=== PATIENT | male | born 1935 | race Caucasian/White ===

== ENCOUNTER 2016-11-03 11:50 | Emergency (ER) | payer OTHER, MEDICARE ==
[~2016-11-03] VITALS: Ht 177.8 cm; Wt 81.7 kg
[~2016-11-03 11:50] MED LIST: ACETAMINOPHEN650 M5 PO; ALBUTEROL SULFAT4 MG PO; AMBIEN 5 MG TABL5 M1 PO; ASPIRIN EC325 M1 PO; ATROVENT IH; BROVANA15 MCG/2 M; BROVANA15 MCG/2 M IH; DUONEB 2.5-0.5 M3 ML IH; GLUCOPHAGE XR500 MG PO; HYDROCODON-ACE1 EACH PO; LIPITOR PO; LIPITOR40 MG PO; LISINOPRIL PO; PREDNISONE 10 M10 MG PO; PREDNISONE 20 M20 MG; PREDNISONE PO; PROAIR HFA8.5 GM IH; PULMICORT0.5 MG/2 M IH; SPIRIVA; THEOPHYLLINE E100 M1; THEOPHYLLINE S300 M1 PO; VENTOLIN17 GM IH; VIBRAMYCIN 100100 MG PO; XOPENEX 0.63 MG/3 M1 IH
[2016-11-03] MEDS ORDERED: VALIUM5 MG PO (15:28)
== END 2016-11-03 15:53 | disposition home or self-care (01) ==
LOC: ER 11:50
DX: S16.1XXA Strain of muscle, fascia and tendon at neck level, initial encounter (principal); J44.9 Chronic obstructive pulmonary disease, unspecified; E78.00 Pure hypercholesterolemia, unspecified; E11.9 Type 2 diabetes mellitus without complications; I10 Essential (primary) hypertension; Z85.828 Personal history of other malignant neoplasm of skin; Z88.5 Allergy status to narcotic agent; X58.XXXA Exposure to other specified factors, initial encounter; Y93.89 Activity, other specified; Y92.89 Other specified places as the place of occurrence of the external cause; Y99.8 Other external cause status

== ENCOUNTER 2017-08-19 13:10 | Inpatient (IN) | payer OTHER, MEDICARE ==
[~2017-08-19] VITALS: Ht 152.4 cm; Wt 86.6 kg
--- NOTE | ~2017-08-19 | 2DMMODE ---
[facility] [address] [place] [address] 2 D/M-MODE ECHOCARDIOGRAM Name: BHAVANA JEFFRIES Room #: 354-P [facility] IN .R.#: [id number] Admission: 08/19/17 Attend Phys: Andrea Jerez, Discharge: Date of : 37 Date of Service: 08/21/17 1505 Report #: [id number] THIS REPORT FOR: //name// APPROVED REPORT Study performed: 08/21/2017 10:10:45 EXAM: Comprehensive 2D, Doppler, and color-flow Echocardiogram Patient Location: Bedside Room #: [facility] Status: routine BSA: 2.05 HR: 115 bpm BP: 136/63 mmHg Rhythm: Tachycardia, Irregular Other Information Study Quality: Fair/Poor. Patient sitting up in bed. Technically limited study due to severe SOB and cough. Did not tolerate exam well. Not all measurements taken.. Indications Respiratory failure, leg swelling. Hx: COPD, CAD, stents, HTN, HLP, DM 2D Dimensions LVEF(%): 44.80 (>50%) IVSd: 12.42 (7-11mm) LVOT Diam: 24.07 (18-24mm) LVDd: 57.34 mm PWd: 12.51 (7-11mm) LVDs: 44.40 (25-40mm) Aortic Root: 40.46 mm Whitehead's LVEF: 44.80 % Aortic Valve AoV Peak Juan Manuel.: 1.10 m/s AO Peak Gr.: 4.88 mmHg LVOT Max P.48 mmHg LVOT Max V: 0.93 m/s ELAINE Vmax: 3.84 cm2 Mitral Valve E/A Ratio: 0.6 MV Decel. Time: 261.40 ms MV E Max Juan Manuel.: 0.87 m/s [facility] [place] [address] 2 D/M-MODE ECHOCARDIOGRAM Name: BHAVANA JEFFRIES Room #: 354-P ADM IN M.R.#: [id number] Admission: 08/19/17 Attend Phys: Andrea Jerez, Discharge: Date of : 37 Date of Service: 08/21/17 1505 Report #: [id number] A Juan Manuel.: 1.43 m/s MV PHT: 75.81 ms Pulmonary Valve PV Peak Juan Manuel.: 1.22 m/s PV Peak Gr.: 5.97 mmHg Tricuspid Valve TR Peak Juan Manuel.: 2.58 m/s RAP Estimate: 10.00 mmHg TR Peak Gr.: 26.53 mmHg PA Pressure: 37.00 mmHg Left Ventricle The left ventricle is normal size. Mild concentric left ventricular hypertrophy. Left ventricular systolic function is normal. LVEF is 50-55%. Right Ventricle The right ventricle is normal size. The right ventricular systolic function is normal. Atria The left atrium size is normal. The right atrium size is normal. Aortic Valve Aortic valve is mildy calcified. No aortic regurgitation is present. There is no aortic valvular stenosis. Mitral Valve The mitral valve is normal in structure. Moderate mitral annular calcification. Trace mitral regurgitation. Tricuspid Valve The tricuspid valve is normal in structure. Trace tricuspid regurgitation. Estimated PAP is 35-40mmHg. Pulmonic Valve Pulmonic valve is not well visualized. Trace pulmonic regurgitation. 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 Ascending aorta is not well visualized. IVC is dilated and collapses <50% with inspiration. Per[facility]ardium [facility] [address] [place] [address] 2 D/M-MODE ECHOCARDIOGRAM Name: BHAVANA JEFFRIES Room #: 354-P ADM IN M.R.#: [id number] Admission: 08/19/17 Attend Phys: Andrea Jerez, Discharge: Date of : 37 Date of Service: 08/21/17 1505 Report #: [id number] There is no pericardial effusion. <Conclusion> Technically difficult study. The left ventricle is normal size. Mild concentric left ventricular hypertrophy. Left ventricular systolic function is normal. The right ventricle is normal size. The left atrium size is normal. Aortic valve is mildy calcified. There is no aortic valvular stenosis. Moderate mitral annular calcification. Trace mitral regurgitation. Trace tricuspid regurgitation. Estimated PAP is 35-40mmHg. <ELECTRONICALLY SIGNED> By: Conor Wilcox MD 08/21/17 1505 1505 1505 Conor Wilcox MD /INF
--- NOTE | ~2017-08-19 | HC ---
[facility] [place] [address] CONSULTATION Name: BHAVANA JEFFRIES Room #: 354-P [facility] IN M.R.#: [id number] Admission: 08/19/17 Attend Phys: Andrea Jerez MD Discharge: 08/24/17 Date of : 37 Report #: [id number] THIS REPORT FOR: //name// CC: Cody Carbajal MD DATE OF SERVICE: 08/19/2017 PULMONARY CONSULTATION REFERRING PROVIDER: Andrea Jerez MD REASON FOR CONSULTATION: Shortness of breath, exacerbation of COPD. HISTORY OF PRESENT ILLNESS: Our group was asked to see the patient in consultation while hospitalized at [facility]. The patient of Dr. Carbajal from our group with a longstanding history of COPD, most recent FEV1 was 0.77 liters or 29% of predicted, also with some interstitial lung disease, called our office 2 days ago with complaints of increasing shortness of breath and cough, was advised to come to the Emergency Department due to the severity of his illness. The patient declined self escalated steroids and uses nebulized treatments more frequently without improvement. He presented to the Emergency Department today due to above complaints. Cough has been productive, unable to expectorate. Denies any fevers, chills or sweats, just some general malaise. States he is feeling better since admission after some aerosol treatments, steroids and antibiotics IV. Currently, he is on 8 liters nasal cannula baseline is requiring 7 liters nasal cannula. ALLERGIES: Include OXYCODONE. PAST MEDICAL HISTORY: 1. COPD as described in HPI. 2. Chronic hypoxemic respiratory failure. 3. Coronary artery disease. 4. Diabetes mellitus type 2. 5. Hyperlipidemia. 6. Hypertension. OUTPATIENT MEDICATIONS: 1. Albuterol inhaler p.r.n. 2. Albuterol nebulized treatments p.r.n. 3. Brovana nebulized twice daily. 4. Aspirin [address] [address] CONSULTATION Name: BHAVANA JEFFRIES Geoffrey Room #: 354-P [facility] IN M.R.#: [id number] Admission: 08/19/17 Attend Phys: Andrea Jerez MD Discharge: 08/24/17 Date of : 37 Report #: [id number] 5. Lipitor 40 mg daily. 6. Budesonide 0.5 mg nebulized twice daily. 7. Hydrocodone p.r.n. 8. Lisinopril 20 mg daily. 9. Melatonin at bedtime p.r.n. 10. Metformin 500 mg twice daily. 11. Supplemental oxygen. 12. Pred Forte eye drops. 13. Prednisone 5 mg tablets daily. 14. Theophylline 300 mg twice daily. 15. Spiriva inhaler. SOCIAL HISTORY: The patient is an ex-smoker, with about a [id number] history of tobacco use. No significant alcohol consumption. FAMILY HISTORY: Noncontributory due to his advanced age. REVIEW OF SYSTEMS: CONSTITUTIONAL: Denies any fever, just some general malaise. ENT: No upper respiratory congestion, rhinorrhea or dysphagia. CARDIOVASCULAR: No chest pains or palpitations. GASTROINTESTINAL: No nausea, vomiting or abdominal pain. GENITOURINARY: No dysuria, no frequency. INTEGUMENT: Denies any rash. MUSCULOSKELETAL: Some increased lower extremity edema, which he states is new. PHYSICAL EXAMINATION: VITAL SIGNS: Afebrile, pulse 100-110, respiratory rate 20, blood pressure 129/83, oxygen saturation 93% on 8 liters. GENERAL: This is a pleasant elderly male, in no distress. HEENT: Clear oropharynx. No thrush. NECK: Supple, no lymphadenopathy. LUNGS: Basilar inspiratory crackles. Occasional expiratory rhonchi and wheezes. CARDIOVASCULAR: Heart regular. No murmurs noted. ABDOMEN: Soft, nontender, no masses. EXTREMITIES: 1+ edema. LABORATORY DATA: White blood cell count 7000, hemoglobin 12, hematocrit 35, platelet count 177. Sodium 145, potassium 4.5, chloride 104, bicarbonate 29, BUN 20, creatinine 1.0, glucose 72. 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 No acute process identified. IMPRESSION: [facility] [address] [place] [address] CONSULTATION Name: BHAVANA JEFFRIES Room #: 354-P [facility] IN M.R.#: [id number] Admission: 08/19/17 Attend Phys: Andrea Jerez MD Discharge: 08/24/17 Date of : 37 Report #: [id number] 1. Acute exacerbation of chronic obstructive pulmonary disease. 2. Acute on chronic hypoxemic respiratory failure. 3. Elevated troponin. SUGGESTIONS: 1. Systemic steroid with taper. 2. Bronchodilation. 3. Add flutter valve to assist with airway clearance. 4. Titrate FiO2. 5. Await sputum cultures. 6. Nasal swab for respiratory viral panel, influenza screen was negative. 7. Mobilize as tolerated. 8. Lower extremity venous Dopplers regarding lower extremity edema. 9. Additional recommendations to follow. Discussed with the patient and nursing. <ELECTRONICALLY SIGNED> By: Ethan Fontana MD 08/24/17 1726 1727 [id number] Ethan Fontana MD /nt
--- NOTE | ~2017-08-19 | EKG ---
[place] [address] [facility] [employer] [address] ELECTROCARDIOGRAM REPORT Name: BHAVANA JEFFRIES Room #: 170-8 ADM IN M.R.#: [id number] Admission: 08/19/17 Attend Phys: Andrea Jerez MD Discharge: Date of : 37 Report #: [id number] THIS REPORT FOR: //name// [facility] ED Test Date: 2017-08-19 Test Time: 14:33:36 Pat Name: BHAVANA JEFFRIES Department: Room: 170 Gender: M Forklift Technician: GRACIELA : 1935 Requested By: Gadiel Lorenzo Order Number: [id number] MD: Chaz Kingsley Measurements Intervals [place] Rate: 112 P: MI: QRS: -51 QRSD: 108 T: 61 QT: 341 QTc: 466 Interpretive Statements Atrial fibrillation Incomplete RBBB and LAFB RSR' in V1 or V2, right VCD or RVH Compared to ECG 07/06/2011 08:57:16 Left anterior fascicular block now present Incomplete right bundle-branch block now present Right bundle-branch block now present Right ventricular hypertrophy now present RSR' in V1 or V2 now present Sinus rhythm no longer present Poor R-wave progression no longer present Electronically Signed On 08-19-2017 16:06:54 CONTROL INTEGRATION ENGINEER by Chaz Kingsley [email or web address] <ELECTRONICALLY SIGNED> By: Chaz Kingsley MD 08/19/17 1606 143 [id number] Chaz Kingsley MD /EPI
[~2017-08-19 13:10] MED LIST changes: +VALIUM5 MG PO
[2017-08-19 13:12] VITALS: BP 164/116
[2017-08-19 14:27] LABS: HEMATOCRIT 36.5 % (42.0-52.0); MCH 29.8 pg (26.0-34.0); MCHC 32.8 g/dL (28.0-37.0); MCV 90.9 fL (80.0-100.0); PLATELET COUNT 181 thou/uL (150-400); RBC 4.02 mil/uL (4.50-6.00); RDW 14.2 % (10.5-14.5); WBC 8.6 thou/uL (4.0-11.0)
[2017-08-19 14:36] LABS: BE(vivo) 7.2 mmol/L (-2 to +3); HCO3 33.3 mmol/L (22.0-26.0); PCO2 53.3 mmHg (35.0-45.0); PO2 74.1 mmHg (80.0-100.0); pH 7.413 (7.360-7.450); sO2 94.8 % (92.0-98.0)
[2017-08-19 14:46] LABS: POTASSIUM 4.4 mmol/L (3.5-5.1)
[2017-08-19 14:52] LABS: CALCIUM 9.3 mg/dL (8.5-10.1); CREATININE 0.9 mg/dL (0.7-1.3)
[2017-08-19 15:03] LABS: ABSOLUTE NEUTROPHILS 7.8 thou/uL (1.4-8.2)
[2017-08-19 15:07] LABS: ALBUMIN 3.1 g/dL (3.4-5.0); TOTAL BILIRUBIN 0.6 mg/dL (<0.1-1.0); TOTAL PROTEIN 6.6 g/dL (6.4-8.2)
[2017-08-19 15:08] LABS: TROPONIN-I 0.06 ng/mL (<0.06)
[2017-08-19 16:45] VITALS: BP 153/70
[2017-08-19 17:45] VITALS: BP 148/88
[2017-08-19 18:37] VITALS: BP 144/64
[2017-08-19 20:00] VITALS: BP 147/59
[2017-08-20 02:27] LABS: HEMOGLOBIN 11.6 gm/dL (14.0-18.0); MCH 30.3 pg (26.0-34.0); MCV 91.6 fL (80.0-100.0); RBC 3.82 mil/uL (4.50-6.00); RDW 14.2 % (10.5-14.5); WBC 6.5 thou/uL (4.0-11.0)
[2017-08-20 03:23] LABS: CALCIUM 9.3 mg/dL (8.5-10.1); MAGNESIUM 2.2 mg/dL (1.8-2.4); POTASSIUM 4.5 mmol/L (3.5-5.1); TROPONIN-I 0.07 ng/mL (<0.06)
[2017-08-20 04:00] VITALS: BP 133/61
[2017-08-20 08:34] VITALS: BP 139/75
[2017-08-20 12:57] VITALS: BP 131/53
[2017-08-20 16:17] VITALS: BP 129/83
[2017-08-20 19:11] VITALS: BP 151/71
[2017-08-21 03:52] VITALS: BP 129/75
[2017-08-21 06:50] LABS: MCH 30.5 pg (26.0-34.0); MCHC 33.2 g/dL (28.0-37.0); MCV 91.6 fL (80.0-100.0); PLATELET COUNT 182 thou/uL (150-400); RDW 14.7 % (10.5-14.5); WBC 9.7 thou/uL (4.0-11.0)
[2017-08-21 07:11] LABS: ALBUMIN 2.5 g/dL (3.4-5.0); CALCIUM 8.6 mg/dL (8.5-10.1); POTASSIUM 4.1 mmol/L (3.5-5.1); TOTAL BILIRUBIN 0.2 mg/dL (<0.1-1.0); TOTAL PROTEIN 5.8 g/dL (6.4-8.2)
[2017-08-21 07:34] VITALS: BP 136/63
[2017-08-21 10:55] LABS: ABSOLUTE NEUTROPHILS 8.9 thou/uL (1.4-8.2)
[2017-08-21 11:51] VITALS: BP 125/55
[2017-08-21 17:10] VITALS: BP 135/96
[2017-08-21 19:13] VITALS: BP 150/68
[2017-08-22 03:54] VITALS: BP 140/81
[2017-08-22 04:36] LABS: HEMOGLOBIN 11.5 gm/dL (14.0-18.0); MCH 29.5 pg (26.0-34.0); MCHC 31.9 g/dL (28.0-37.0); MCV 92.4 fL (80.0-100.0); PLATELET COUNT 215 thou/uL (150-400); RDW 14.8 % (10.5-14.5); WBC 10.1 thou/uL (4.0-11.0)
[2017-08-22 04:51] LABS: ALBUMIN 2.8 g/dL (3.4-5.0); CREATININE 1.2 mg/dL (0.7-1.3); POTASSIUM 4.5 mmol/L (3.5-5.1); TOTAL BILIRUBIN 0.3 mg/dL (<0.1-1.0); TOTAL PROTEIN 6.2 g/dL (6.4-8.2)
[2017-08-22 06:34] LABS: ABSOLUTE NEUTROPHILS 10.1 thou/uL (1.4-8.2); ANISOCYTOSIS SLIGHT
[2017-08-22 07:40] VITALS: BP 172/80
[2017-08-22 11:50] VITALS: BP 150/78
[2017-08-22 16:40] VITALS: BP 146/77
[2017-08-22 19:25] VITALS: BP 121/63
[2017-08-23 03:31] VITALS: BP 123/60
[2017-08-23 08:33] VITALS: BP 153/68
[2017-08-23 13:26] VITALS: BP 145/72
[2017-08-23 17:20] VITALS: BP 145/72
[2017-08-23 19:27] VITALS: BP 150/81
[2017-08-24 04:17] VITALS: BP 137/70
[2017-08-24 08:16] VITALS: BP 150/85
[2017-08-24 08:21] VITALS: BP 150/85
[2017-08-24] MEDS ORDERED: LEVAQUIN 500 M500 M2 PO (09:06)
[2017-08-24] MEDS ORDERED: MUCINEX600 MG PO (09:08)
[2017-08-24] MEDS ORDERED: FLOMAX0.4 MG PO (09:14)
== END 2017-08-24 14:17 | DRG 871 ==
LOC: ER 13:10 → EROBS 15:34 → 3W 15:34
PROVIDERS: Internal Medicine; Nurse Practitioner Family; Physician Assistant
DX: A41.9 Sepsis, unspecified organism (principal); J96.21 Acute and chronic respiratory failure with hypoxia; J18.9 Pneumonia, unspecified organism; J44.1 Chronic obstructive pulmonary disease with (acute) exacerbation; J44.0 Chronic obstructive pulmonary disease with (acute) lower respiratory infection; E78.00 Pure hypercholesterolemia, unspecified; E11.9 Type 2 diabetes mellitus without complications; I10 Essential (primary) hypertension; E78.5 Hyperlipidemia, unspecified; I25.10 Atherosclerotic heart disease of native coronary artery without angina pectoris; K59.00 Constipation, unspecified; J84.10 Pulmonary fibrosis, unspecified; Z85.828 Personal history of other malignant neoplasm of skin; Z79.899 Other long term (current) drug therapy; Z99.81 Dependence on supplemental oxygen; Z98.42 Cataract extraction status, left eye; Z98.41 Cataract extraction status, right eye; Z79.4 Long term (current) use of insulin; Z87.891 Personal history of nicotine dependence; Z95.5 Presence of coronary angioplasty implant and graft; Z88.6 Allergy status to analgesic agent
CPT/HCPCS: 10779

== ENCOUNTER → 2018-06-17 | Outpatient (CLI) | payer OTHER, MEDICARE ==
[~2018-06-17] MED LIST changes: +FLOMAX0.4 MG PO; +LEVAQUIN 500 M500 M2 PO; +MUCINEX600 MG PO
== END ==
LOC: RAD 11:40
DX: J43.9 Emphysema, unspecified (principal); J98.4 Other disorders of lung; I70.0 Atherosclerosis of aorta